=== PATIENT | female | born 2000 | race Caucasian/White ===

== ENCOUNTER 2023-01-05 13:45 | Emergency (ER) | payer OTHER ==
[2023-01-05] MEDS ORDERED: Ondansetron ODT 4 MG TAB ONE (14:36)
[2023-01-05] MEDS ORDERED: predniSONE 20 MG TAB ONE (14:36)
[2023-01-05] MEDS ORDERED: Acetaminophen 500 MG TAB ONE (14:36)
[2023-01-05 15:29] LABS: SARS-CoV-2 NAA Rapid Test Not Detected (NotDetected)
== END 2023-01-05 15:25 | disposition home or self-care (01) ==
LOC: ERS 13:45
DX: J03.90 Acute tonsillitis, unspecified (principal); B34.9 Viral infection, unspecified; E66.9 Obesity, unspecified; Z20.822 Contact with and (suspected) exposure to COVID-19
CPT/HCPCS: 87081; 87430; 99283; J7512; Q0162

== ENCOUNTER 2024-10-18 15:28 | Emergency (ER) | payer BC, SELFPAY | END 2024-10-18 16:03 | disposition home or self-care (01) | LOC: ERS 15:28 | DX: R19.7 Diarrhea, unspecified (principal) | CPT/HCPCS: 99283 ==